=== PATIENT | female | born 1985 | race Caucasian/White ===

== ENCOUNTER 2019-10-14 11:36 | Outpatient (REF) | payer SELFPAY ==
[2019-10-14 12:52] LABS: Rubella IgG 42.6 IU/mL (0.0-9.0)
[2019-10-16 11:57] LABS: Quantiferon Mitogen 7.78 IU/mL; Quantiferon Nil 0.01 IU/mL; Quantiferon TB Gold NEGATIVE (NEGATIVE)
== END 2019-10-14 11:37 | disposition home or self-care (01) ==
LOC: LAB 11:36
DX: Z01.89 Encounter for other specified special examinations (principal)
CPT/HCPCS: 86480; 86706; 86735; 86762; 86765; 86787

== ENCOUNTER 2023-03-05 16:46 | Emergency (ER) | payer SELFPAY ==
[2023-03-05 16:48] VITALS: BP 127/81; PULSE 76; TEMP 36.9; O2SAT 100; BMI 22.8
[2023-03-05 17:01] VITALS: BP 127/81; PULSE 76; RESP 18; O2SAT 100
[2023-03-05 17:23] LABS: Basophils # 0.1 10^3/uL (0.0-0.1); Basophils % 0.8 %; Eosinophils # 0.1 10^3/uL (0.0-0.8); Eosinophils % 1.6 %; Hematocrit 40.8 % (37.0-47.0); Hemoglobin 12.9 g/dL (11.5-15.3); Lymphocytes # 2.7 10^3/uL (0.8-4.8); Lymphocytes % 41.1 %; Mean Corpuscular HGB Conc 31.6 g/dL (30.0-36.0); Mean Corpuscular Hemoglobin 29.7 pg (28.0-34.0); Mean Corpuscular Volume 93.8 fl (81-99); Mean Platelet Volume 9.7 fL (7.4-10.4); Monocytes # 0.4 10^3/uL (0.2-0.9); Monocytes % 5.7 %; Neutrophils # 3.27 10^3/uL (1.8-7.7); Neutrophils % 50.6 %; Nucleated Red Blood Cells % 0 %; Platelet Count 328 10^3/cmm (130-400); Red Blood Count 4.35 10^6/uL (4.1-5.3); Red Cell Distribution Width 11.9 % (12.1-15.1); White Blood Count 6.5 10^3/uL (4.0-10.0)
[2023-03-05 17:31] VITALS: RESP 18; O2SAT 100
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
[2023-03-05 17:40] LABS: HCG Qualitative Urine. Negative (Negative)
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
[2023-03-05 17:45] LABS: Alanine Aminotransferase 14 U/L (0-33); Albumin Level 4.1 g/dL (3.5-5.2); Alkaline Phosphatase 60 U/L (35-105); Anion Gap 10.7 (5-19); Aspartate Amino Transferase 20 U/L (0-32); Blood Urea Nitrogen 17 mg/dL (6-20); Calcium 8.4 mg/dL (8.5-10.5); Carbon Dioxide 27 mmol/L (22-29); Chloride 105 mmol/L (98-107); Globulin 2.7 g/dL (1.3-4.6); Glomerular Filtration Rate 111.3 mL/min (90-130); Glucose 50 mg/dL (65-115); Osmolality Calculated 287 mOsm/kg (285-295); Potassium 3.7 mmol/L (3.5-5.1); Sodium 139 mmol/L (136-145); Total Bilirubin 0.4 mg/dL (0.15-1.2); Total Protein 6.8 g/dL (6.6-8.7)
[2023-03-05 17:46] LABS: Acetaminophen < 5.0 ug/mL (10-30); Alcohol Level < 10 mg/dL (0-10); Salicylate < 0.3 mg/dL (3-10)
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
[2023-03-05 19:22] LABS: Amphetamines Screen Urine Positive (Negative); Barbiturates Screen Urine Negative (Negative); Benzodiazepines Screen Urine Negative (Negative); Cocaine Screen Urine Negative (Negative); Opiate Screen Urine Negative (Negative); PCP Screen Urine Negative (Negative); THC Screen Urine Positive (Negative)
[2023-03-05 19:29] LABS: Urine Color Red (Yellow)
[2023-03-05 19:30] LABS: Add Urine Microscopic? YES; Bilirubin Urine 1+ (Negative); Blood Urine 3+ (Negative); Glucose Urine UA Norm (Normal); Ketones Urine 1+ (Negative); Leukocyte Esterase Urine 1+ (Negative); Nitrate Urine Positive (Negative); Protein Urine 1+ (Negative); Specific Gravity, Urine 1.025 (1.005-1.030); Urine Appearance Cloudy (CLEAR); Urobilinogen Urine 1 mg/dL (Negative); pH Urine 5 (5-7)
[2023-03-05 19:31] LABS: Add Urine Culture? Yes; Bacteria Urine 3+ /hpf; RBC Urine >100 /hpf (0-2); Squamous Epithelial Cell Urine 0-4 /hpf (0-5)
[2023-03-05 20:32] VITALS: RESP 18; O2SAT 100
== END 2023-03-05 20:32 | disposition home or self-care (01) ==
PROVIDERS: Emergency Provider Emergency Medicine; PCP Family Medicine Adult Medicine
DX: F32.A Depression, unspecified (principal); F41.9 Anxiety disorder, unspecified; Z63.0 Problems in relationship with spouse or partner
CPT/HCPCS: 36415; 80053; 80306; 80307; 81001; 81025; 85025; 87077; 87086; 87186; 99283

== ENCOUNTER 2024-01-18 08:41 | Emergency (ER) | payer SELFPAY ==
[2024-01-18 08:46] VITALS: BP 160/83; PULSE 90; RESP 17; TEMP 36.5; O2SAT 98; BMI 22.4
[2024-01-18] MEDS: ondansetron 2 mg/ML SDV 2 mL 4 MG IVP (09:05)
[2024-01-18] MEDS: sodium chloride 0.9% 1,000 ML 999 ML IV (09:08)
[2024-01-18 09:09] VITALS: BP 137/87; PULSE 81; O2SAT 99
[2024-01-18 09:11] LABS: Basophils # 0.1 10^3/uL (0.0-0.1); Basophils % 0.8 %; Eosinophils % 0.1 %; Hematocrit 40.6 % (36-47); Lymphocytes # 1.6 10^3/uL (0.8-4.8); Lymphocytes % 19.8 %; Mean Corpuscular HGB Conc 35.2 g/dL (30-55); Mean Corpuscular Hemoglobin 31.2 pg (27-33); Mean Corpuscular Volume 88.5 fl (85-98); Mean Platelet Volume 9.5 fL (7.4-10.4); Monocytes # 0.6 10^3/uL (0.2-0.9); Monocytes % 7.3 %; Neutrophils # 5.62 10^3/uL (1.8-7.7); Neutrophils % 71.7 %; Nucleated Red Blood Cells % 0 %; Platelet Count 341 10^3/cmm (157-399); Red Blood Count 4.59 10^6/uL (3.85-5.65); Red Cell Distribution Width 12.1 % (12.1-15.1); White Blood Count 7.83 10^3/uL (3.29-11.43)
--- NOTE | 2024-01-18 09:27 | W.ED.NAVMDI ---
HPI - Nausea/Vomiting/Diarrhea General: Chief complaint: Nausea/Vomiting/Diarrhea Stated complaint: vomiting Time Seen by Provider: 01/18/24 08:49 Source: patient Mode of arrival: ambulatory History of Present Illness: 38-year-old female female who presents emergency room with persistent nausea vomiting. She is intermittently had this for the last couple weeks but has been increasing the last few days. She thinks her last period was sometime early in November giving her an roughly estimated estimated gestational age of 9 weeks. She has had some intermittent spotting is not currently having any vaginal bleeding now denies dysuria urgency or frequency. MD elicited complaint: nausea and vomiting Associated nausea: Yes Associated symtoms: Reports nausea; Denies altered mental status, anxiety, bloating, change in vision, chest pain, cough, diaphoresis, decreased urine output, dizziness, dysuria, epistaxis, fatigue, fecal incontinence, fevers/chills, headache(s), anorexia, malaise, myalgias, numbness, palpitations, rash, short of breath, syncope, tenesmus, tinnitus or weakness Review of Systems Const: Denies: fever(s), chills, fatigue, malaise or diaphoresis Eyes: Denies: change in vision ENMT: Denies: tinnitus or epistaxis Card: Denies: chest pain, palpitations or syncope Resp: Denies: dyspnea GI: Reports: nausea and vomiting; Denies: abdominal pain, bloating or fecal incontinence : Denies: dysuria, urinary frequency or urinary urgency Musc: Denies: neck pain or back pain Skin/Breast: Denies: rash Neuro: Denies: headache(s) or dizziness Psych: Denies: anxiety PFSH ED PFSH: Medical History Opioid abuse with other opioid-induced disorder Endometriosis Depression Anxiety Exposure to COVID-19 virus Social History Smoking and tobacco/nicotine status: current some day tobacco/nicotine user Alcohol intake: never Substance/Drug Use: former Marital status: Life Partner Number of children: 2 Number of grandchildren: 0 Current occupational status: employed Physical Exam Const: COMMON NORMALS: no acute distress EXAM LIMITATIONS: no altered mental status GENERAL APPEARANCE: cooperative and comfortable ORIENTATION/CONSCIOUSNESS: Yes awake, Yes oriented to person, Yes oriented to place and Yes oriented to time HENMT: COMMON NORMALS: normocephalic, atraumatic and hearing grossly normal bilaterally HEAD & SCALP: normocephalic and atraumatic Resp: COMMON NORMALS: normal respiratory effort, No retractions, No use of accessory muscles and clear to auscultation bilaterally AUSCULTATION: clear to auscultation bilaterally Cardio: COMMON NORMALS: regular rate, regular rhythm and No murmurs present (Cardio) RATE: regular rate RHYTHM: regular rhythm GI: COMMON NORMALS: Soft to palpation and No hepatosplenomegaly present AUSCULTATION: Yes normoactive bowel sounds PALPATION: Yes Soft to palpation, No Tenderness to palpation present (GI), No Guarding due to palpation present (GI) and Yes No hepatosplenomegaly present Extremity: COMMON NORMALS: normal to inspection, capillary refill normal, no clubbing, cyanosis or edema, no calf tenderness and no pedal edema Neuro: SENSORIUM/ORIENTATION: Yes oriented to person, Yes oriented to place and Yes oriented to time Skin: COMMON NORMALS: no rashes or lesions noted GENERAL SKIN EXAM: no rashes or lesions noted Course Vital Signs: Vital signs: Vital Signs Temperature 97.7 F 01/18/24 08:46 Pulse Rate 81 01/18/24 09:09 Respiratory Rate 17 01/18/24 08:46 Blood Pressure 137/87 01/18/24 09:09 Pulse Oximetry 99 01/18/24 09:09 Oxygen Delivery Me thod Room Air 01/18/24 09:09 MDM - Nausea/Vomiting/Diarrhea Medical Decision Making Patient feels much better after medications and IV fluids. Beta-hCG appropriate for gestational age ultrasound confirms IUP at 7 weeks 3 days. Will discharge patient home promethazine use. Clinical diet for 24 to 40 hours advance as tolerated follow-up with stapler coil unit as previously scheduled. Medical Records I reviewed the patient's medical records. Lab Data I reviewed the patient's lab results. 01/18/24 09:01 01/18/24 09:01 Laboratory Results WBC 7.83 10^3/uL (3.29-11.43) 01/18/24 09:01 RBC 4.59 10^6/uL (3.85-5.65) 01/18/24 09:01 Hgb 14.30 g/dL (11.27-16.99) 01/18/24 09:01 Hct 40.6 % (36-47) 01/18/24 09: MCV 88.5 fl (85-98) 01/18/24 09:01 MCH 31.2 pg (27-33) 01/18/24 09:01 MCHC 35.2 g/dL (30-55) 01/18/24 09:01 RDW 12.1 % (12.1-15.1) 01/18/24 09:01 Plt Count 341 10^3/cmm (157-399) 01/18/24 09:01 MPV 9.5 fL (7.4-10.4) 01/18/24 09:01 Neut % (Auto) 71.7 % 01/18/24 09: Lymph % (Auto) 19.8 % 01/18/24 09: [place] % (Auto) 7.3 % 01/18/24 09:01 Eos % (Auto) 0.1 % 01/18/24 09:01 Baso % (Auto) 0.8 % 01/18/24 09:01 Neut # (Auto) 5.62 10^3/uL (1.8-7.7) 01/18/24 09:01 Lymph # (Auto) 1.6 10^3/uL (0.8-4.8) 01/18/24 09:01 [place] # (Auto) 0.6 10^3/uL (0.2-0.9) 01/18/24 09:01 Eos # (Auto) 0.0 10^3/uL (0.0-0.8) 01/18/24 09:01 Baso # (Auto) 0.1 10^3/uL (0.0-0.1) 01/18/24 09:01 Nucleated RBC % (auto) 0 % 01/18/24 09: Nucleated RBCs # 0.0 /100WBC 01/18/24 09:01 Sodium 133 mmol/L (136-145) L 01/18/24 09:01 Potassium 3.5 mmol/L (3.5-5.1) 01/18/24 09:01 Chloride 97 mmol/L (98-107) L 01/18/24 09:01 Carbon Dioxide 20 mmol/L (22-29) L 01/18/24 09: Anion Gap 19.5 (5-19) H 01/18/24 09: BUN 15 mg/dL (6-20) 01/18/24 09: Creatinine 0.5 mg/dL (0.5-0.9) 01/18/24 09: GFR Calculation 136.6 mL/min (90-130) H 01/18/24 09: Glucose 99 mg/dL (65-115) 01/18/24 09: Calculated Osmolality 277 mOsm/kg (285-295) L 01/18/24 09: Calcium 9.2 mg/dL (8.5-10.5) 01/18/24 09: Total Bilirubin 0.6 mg/dL (0.15-1.2) 01/18/24 09: AST 17 U/L (0-32) 01/18/24 09: ALT 13 U/L (0-33) 01/18/24 09: Alkaline Phosphatase 54 U/L (35-105) 01/18/24 09: Total Protein 7.7 g/dL (6.6-8.7) 01/18/24 09: Albumin 4.5 g/dL (3.5-5.2) 01/18/24 09: Globulin 3.2 g/dL (1.3-4.6) 01/18/24 09: Lipase 17 U/L (13-60) 01/18/24 09: Ser , Semi-Qnt 87962.00 mIU/mL 01/18/24 09: Urine Color Yellow (Yellow) 01/18/24 09:39 Urine Appearance Clear (CLEAR) 01/18/24:39 Urine pH 5 (5-7) 01/18/24 09:39 Ur Specific [place] 1.025 (1.005-1.030) 01/18/24 09:39 Urine Protein Trace (Negative) 01/18/24 09:39 Urine Glucose (UA) Norm (Normal) 01/18/24 09:39 Urine Ketones 3+ (Negative) H 01/18/24 09:39 Urine Blood 2+ (Negative) H 01/18/24 09:39 Urine Nitrate Negative (Negative) 01/18/24 09:39 Urine Bilirubin 1+ (Negative) H 01/18/24 09:39 Urine Urobilinogen Norm mg/dL (Negative) 01/18/24 09:39 Ur Leukocyte Esterase Trace (Negative) H 01/18/24 09:39 Urine RBC 5-10 /hpf (0-2) H 01/18/24 09:39 Urine WBC 0-4 /hpf (0-5) H 01/18/24 09:39 Ur Squamous Epith Cells 5-10 /hpf (0-5) H 01/18/24 09:39 Amorphous Sediment Not Reportable 01/18/24 09:39 Urine Bacteria Trace /hpf (NONE) 01/18/24 09:39 Urine Mucus 2+ /hpf 01/18/24 09:39 All radiology interpretation(s) finalized by discharge Discharge Plan Discharge Patient Disposition: Home Clinical Impression: Hyperemesis gravidarum, First trimester Condition: Stable Prescriptions: New promethazine 25 mg tablet 25 mg PO Q6H PRN (Reason: nausea and vomiting) Qty: 20 0RF No Action methadone 160 mg wafer 95 mg PO DAILY omega-3 fatty acids [Fish Oil Concentrate] 1,000 mg capsule 1,000 mg PO DAILY garlic Tablet 300 mg PO DAILY multivitamin Tablet 1 tab PO DAILY escitalopram oxalate [Lexapro] 10 mg tablet 10 mg PO DAILY Qty: 30 0RF hydroxyzine HCl 25 mg tablet 25 mg PO Q6H PRN (Reason: anxiety/panic attacks) Qty: 30 0RF Discharge Orders: Discharge ED (Routine); Ordered 01/18/24 Ordered By: Trevor Mattson Referrals: Elly Vargas MD [Primary Care Provider] - Discharge Diet: Clear Liquid Discharge Activity: Increase activity as tolerated Patient Instructions: Hyperemesis Gravidarum (ED), Opioid Safety, Pain Management Activity Restrictions/Additional Instructions: Thank you for choosing [facility] for your healthcare needs today. Please realize this is an emergency room and that we are providing you with a medical screening exam and this may not be complete and all inclusive of all the testing and or work up that you may need to determine your ailment or severity of your illness. It is very important that you follow up as instructed or that you return to the Emergency Department should you have concerns or if your condition changes or worsens in any way. Follow-up with your stapler coil unit as scheduled. Ultrasound today showed a viable 7-week 3-day intrauterine. Coding Level of Care Code ED Carpet Cleaner for Heather Padgett
[2024-01-18 09:35] LABS: Alanine Aminotransferase 13 U/L (0-33); Albumin Level 4.5 g/dL (3.5-5.2); Alkaline Phosphatase 54 U/L (35-105); Anion Gap 19.5 (5-19); Aspartate Amino Transferase 17 U/L (0-32); Blood Urea Nitrogen 15 mg/dL (6-20); Calcium 9.2 mg/dL (8.5-10.5); Carbon Dioxide 20 mmol/L (22-29); Chloride 97 mmol/L (98-107); Creatinine Clr Calc Pharmacy 123.6674; Globulin 3.2 g/dL (1.3-4.6); Glomerular Filtration Rate 136.6 mL/min (90-130); Glucose 99 mg/dL (65-115); Lipase 17 U/L (13-60); Osmolality Calculated 277 mOsm/kg (285-295); Potassium 3.5 mmol/L (3.5-5.1); Sodium 133 mmol/L (136-145); Total Bilirubin 0.6 mg/dL (0.15-1.2); Total Protein 7.7 g/dL (6.6-8.7)
[2024-01-18 10:01] LABS: Add Urine Microscopic? YES; Bilirubin Urine 1+ (Negative); Blood Urine 2+ (Negative); Glucose Urine UA Norm (Normal); Ketones Urine 3+ (Negative); Leukocyte Esterase Urine Trace (Negative); Nitrate Urine Negative (Negative); Protein Urine Trace (Negative); Specific Gravity, Urine 1.025 (1.005-1.030); Urine Appearance Clear (CLEAR); Urine Color Yellow (Yellow); Urobilinogen Urine Norm (Negative); pH Urine 5 (5-7)
[2024-01-18 10:02] LABS: Add Urine Culture? No; Bacteria Urine TRACE /hpf; Mucus Urine 2+ /hpf; WBC Urine 0-4 /hpf (0-5)
[2024-01-18] MEDS: metoclopramide 5 mg/mL SDV 2 mL 10 MG IVP (10:06)
[2024-01-18] MEDS: diphenhydrAMINE 50 mg/mL SDV 1mL 25 MG IVP (10:08)
--- NOTE | 2024-01-18 10:55 | USR_ITS ---
PROCEDURE INFORMATION: Exam: US , Limited Exam date and time: 01/18/2024 11:19 AM Age: 38 years old Clinical indication: complicated by abdominal or pelvic pain; Lower; First trimester (<14 weeks 0 days); Gestational age or lmp: 7w 3d; ; Additional info: Confirm iup. Cramping LABS AND CLINICAL REPORTS: Last menstrual period start date: 11/28/2023 Gestational age (Established): 7 w 2 d Estimated due date (Established): 09/03/2024 TECHNIQUE: Imaging protocol: Real-time ultrasound of the maternal uterus with image documentation. Exam focused on the clinical indication. COMPARISON: No relevant prior studies available. FINDINGS: Gestation: There is a intrauterine gestational sac, yolk sac and pole identified. The crown-rump length of the fetus measures 7 weeks and 3 days. No evidence of a subchorionic hemorrhage heart rate: Normal cardiac activity measuring 163 bpm MATERNAL: Cervix: Cervical length measures 3.4 cm. US/US OB limited [id number] IMPRESSION: Normal-appearing single live intrauterine measuring 7 weeks and 3 days with normal cardiac activity
[2024-01-18 12:19] VITALS: BP 137/87; PULSE 81; RESP 17; TEMP 36.5; O2SAT 99
== END 2024-01-18 12:20 | disposition home or self-care (01) ==
PROVIDERS: Emergency Provider Family Medicine; PCP Family Medicine
DX: O21.0 Mild hyperemesis gravidarum (principal); Z3A.01 Less than 8 weeks gestation of pregnancy; Z79.891 Long term (current) use of opiate analgesic; O99.331 Smoking (tobacco) complicating pregnancy, first trimester
CPT/HCPCS: 76815; 80053; 81001; 83690; 84702; 85025; 96361; 96374; 96375; 99285; J1200; J2405; J2765; J7030

== ENCOUNTER → 2024-01-29 07:27 | Outpatient (BNVA) | payer SELFPAY | PROVIDERS: PCP Family Medicine; Visit Provider Nurse Practitioner Women's Health | DX: N92.6 Irregular menstruation, unspecified (principal); Z34.90 Encounter for supervision of normal pregnancy, unspecified, unspecified trimester; Z32.01 Encounter for pregnancy test, result positive | CPT/HCPCS: 81025; 84702; 86850; 86900 ==

== ENCOUNTER → 2024-02-16 07:51 | Outpatient (BNVA) | payer OTHER, SELFPAY | PROVIDERS: PCP Family Medicine; Visit Provider Obstetrics & Gynecology | DX: Z34.90 Encounter for supervision of normal pregnancy, unspecified, unspecified trimester (principal) | CPT/HCPCS: 81000; 87491; 87591; 87624 ==

== ENCOUNTER → 2024-03-10 13:19 | Outpatient (BNVA) | payer MEDICAID, SELFPAY | PROVIDERS: PCP Family Medicine; Visit Provider Obstetrics & Gynecology | DX: Z34.90 Encounter for supervision of normal pregnancy, unspecified, unspecified trimester (principal) | CPT/HCPCS: 76815 ==

== ENCOUNTER → 2024-03-25 08:09 | Outpatient (BNVA) | payer MEDICAID, SELFPAY | PROVIDERS: PCP Family Medicine; Visit Provider Nurse Practitioner Women's Health | DX: Z34.90 Encounter for supervision of normal pregnancy, unspecified, unspecified trimester (principal) | CPT/HCPCS: 80307; 82105; 84315; 85025; 86592; 86762; 86803; 86850; 86900; 87086; 87340; 87806 ==

== ENCOUNTER → 2024-04-21 14:04 | Outpatient (BNVA) | payer MEDICAID, SELFPAY | PROVIDERS: PCP Family Medicine; Visit Provider Obstetrics & Gynecology | DX: Z36.2 Encounter for other antenatal screening follow-up (principal); Z3A.20 20 weeks gestation of pregnancy | CPT/HCPCS: 76805 ==

== ENCOUNTER → 2024-04-30 14:32 | Outpatient (BNVA) | payer MEDICAID, SELFPAY | PROVIDERS: PCP Family Medicine; Visit Provider Obstetrics & Gynecology | DX: O09.92 Supervision of high risk pregnancy, unspecified, second trimester (principal) | CPT/HCPCS: 84315 ==

== ENCOUNTER → 2024-06-02 08:11 | Outpatient (BNVA) | payer MEDICAID, SELFPAY | PROVIDERS: PCP Family Medicine; Visit Provider Nurse Practitioner Women's Health | DX: O09.92 Supervision of high risk pregnancy, unspecified, second trimester (principal) | CPT/HCPCS: 80307; 82950; 84315; 85025 ==

== ENCOUNTER 2024-06-09 09:10 | Outpatient (CLI) | payer MEDICAID, SELFPAY ==
[2024-06-09] VITALS (10 sets, daily range): BP systolic 95–112; BP diastolic 49–64; PULSE 54–76; BMI 25.6
[2024-06-09 09:42] LABS: Bacteria Urine 1+ /hpf; Hyaline Casts Urine 0.81 /lpf; RBC Urine 0-2 /hpf (0-2); Squamous Epithelial Cell Urine 0-5 /hpf (0-5); WBC Urine 0-5 /hpf (0-5)
[2024-06-09 10:05] LABS: Bilirubin Urine Negative (Negative); Blood Urine Negative (Negative); Glucose Urine UA Negative (Normal); Ketones Urine 2+ (Negative); Leukocyte Esterase Urine Negative (Negative); Nitrate Urine Negative (Negative); Protein Urine Negative (Negative); Specific Gravity, Urine 1.016 (1.005-1.030); Urine Appearance Clear (CLEAR); Urine Color Yellow (Yellow)
[2024-06-09 10:17] LABS: Add Urine Culture? No
== END 2024-06-09 11:48 | disposition home or self-care (01) ==
LOC: OPOB 09:13 → OBGYN 09:14
PROVIDERS: PCP Family Medicine; Visit Provider Obstetrics & Gynecology
DX: O26.899 Other specified pregnancy related conditions, unspecified trimester (principal); Z3A.00 Weeks of gestation of pregnancy not specified; R10.9 Unspecified abdominal pain
CPT/HCPCS: 59025; 81001; 99211

== ENCOUNTER → 2024-06-16 15:47 | Outpatient (BNVA) | payer MEDICAID, SELFPAY | PROVIDERS: PCP Family Medicine; Visit Provider Nurse Practitioner Women's Health | DX: O09.92 Supervision of high risk pregnancy, unspecified, second trimester (principal) | CPT/HCPCS: 80307; 84315; 85025; 86850 ==

== ENCOUNTER → 2024-06-25 15:10 | Outpatient (BNVA) | payer MEDICAID, SELFPAY | PROVIDERS: PCP Family Medicine; Visit Provider Obstetrics & Gynecology | DX: O09.92 Supervision of high risk pregnancy, unspecified, second trimester (principal); F11.188 Opioid abuse with other opioid-induced disorder | CPT/HCPCS: 80307; 84315 ==

== ENCOUNTER → 2024-07-13 10:09 | Outpatient (BNVA) | payer MEDICAID, SELFPAY | PROVIDERS: PCP Family Medicine; Visit Provider Obstetrics & Gynecology | DX: O36.5930 Maternal care for other known or suspected poor fetal growth, third trimester, not applicable or unspecified (principal); Z3A.29 29 weeks gestation of pregnancy | CPT/HCPCS: 76816; 76820 ==

== ENCOUNTER 2024-08-12 13:05 | Inpatient (IN) | payer MEDICAID, SELFPAY ==
[2024-08-12] VITALS (19 sets, daily range): BP systolic 99–142; BP diastolic 55–83; PULSE 69–106; RESP 16–18; TEMP 36.3–36.8; BMI 23.8
[2024-08-12 14:08] LABS: Amphetamines Screen Urine Negative (Negative); Barbiturates Screen Urine Negative (Negative); Benzodiazepines Screen Urine Positive (Negative); Cocaine Screen Urine Negative (Negative); Opiate Screen Urine Negative (Negative); PCP Screen Urine Negative (Negative); THC Screen Urine Positive (Negative)
[2024-08-12 14:35] LABS: Basophils % 0.3 %; Hematocrit 37.1 % (36-47); Lymphocytes # 1.6 10^3/uL (0.8-4.8); Mean Corpuscular Hemoglobin 30.2 pg (27-33); Mean Platelet Volume 11.9 fL (7.4-10.4); Monocytes # 0.5 10^3/uL (0.2-0.9); Monocytes % 6.4 %; Neutrophils # 5.41 10^3/uL (1.8-7.7); Nucleated Red Blood Cells % 0 %; Platelet Count 267 10^3/cmm (157-399); Red Blood Count 4.17 10^6/uL (3.85-5.65); White Blood Count 7.51 10^3/uL (3.29-11.43)
[2024-08-12] MEDS: fentaNYL 50 mcg/mL INJ 2mL IVP ×2 (15:20→17:45)
[2024-08-12] MEDS: dextrose 5%-lactated ringers 1,000 ML 125 ML IV (15:21)
[2024-08-12] MEDS: ampicillin 2,000 MG in sodium chloride 0.9% (plus) 50 ML 100 MG IV (15:21)
[2024-08-12] MEDS: alum-mag-hydroxide-sime 30 mL UDC PO ×2 (15:21→19:39)
[2024-08-12] MEDS: ondansetron 2 mg/ML SDV 2 mL 4 MG IVP ×2 (16:20→21:01)
--- NOTE | 2024-08-12 17:10 | P.HP_ITS ---
Providers/Chief Complaint 2 Admitting Physician: Dawit Moss MD Primary RUBBER GOODS REPAIRER: Jose Brown MD Primary Care Provider: Elly Vargas MD Chief Complaint: ctx,vomiting HPI RUBBER GOODS REPAIRER History of Present Illness Kandy Thomas is a 39 year old female EDC August 31, 2024 At 37 w 2 d No complications Presents to L&D c/o painful uterine contractions and fluid leakage No bleeding + active movements h/o x two inconsistent visits last visit was at 33 weeks PMHx: h/o opioid abuse Meds: methadone Sertraline Present Details : 3 Para: 2 Labs Rubella: Immune RPR: Negative GBS: Unknown Medications/Allergies Home Medications Medication Instructions Recorded Confirmed Last Taken Type methadone 120 mg PO DAILY 04/15/23 08/12/24 08/12/24 History sertraline 25 mg tablet (Zoloft) 25 mg PO DAILY #30 tabs 06/16/24 07/12/24 Unknown Rx benzonatate 100 mg capsule 100 mg PO BID PRN cough #7 caps 06/17/24 07/12/24 Unknown Rx ondansetron 4 mg disintegrating See Rx Instructions .Route 07/19/24 08/12/24 1 Week Ago Rx tablet .COMPLEX #20 tabs ~08/05/24 PNV 153-FA 400 mcg-om3 35 mg-dha tab PO 08/12/24 08/12/24 History 25 mg-epa 5 mg-fish oil chew tablet ( Gummies) sertraline 20 mg/mL oral 20 mg PO DAILY 08/12/24 08/12/24 08/12/24 History concentrate (Zoloft) Allergies Allergy/AdvReac Type Severity Reaction Status Date / Time No Known Allergies Allergy Verified 08/12/24 16:42 PFSH RUBBER GOODS REPAIRER 2 PFSH: Medical History No pertinent past medical history neghx: htn,dm,thyroid,dvt/pe PCP: None Opioid abuse with other opioid-induced disorder Endometriosis Depression Anxiety Exposure to COVID-19 virus Surgical History No pertinent past surgical history Family History Father Colon cancer Hypertension Hyperlipidemia Denies family history of Ovarian cancer Prostate cancer Diabetes Heart disease Breast cancer Uterine cancer Thyroid disease Stroke Social History (Updated 08/12/24 @ 16:42 by Jessica Chung, SHERYL) Smoking and tobacco/nicotine status: current every day tobacco/nicotine user History History History 2 3 Term 2 0 Miscarriages/Ectopic 0 Living Children 2 Care JOSH Calculator 2 Estimated Delivery Date Method Current WG Current Estimate 08/31/24 LMP (Certain) 37w 3d Specific Issues/Plans 06/02/2024-Desires sterilization after her delivery--- needs counseling and SANJU papers signed -opioid use -Current Marijuana use -benzo use/abuse -AMA -tobacco use -rh negative --- rhogam given 06/16/2024 JR Vitals/I&O/Wt Last Vital Signs Temp 97.9 F 08/13/24 03:38 Pulse 83 08/13/24 06:38 Resp 18 08/13/24 04:18 BP 138/96 08/13/24 06:38 O2 Del Method Room Air 08/13/24 04:31 08/12/24 08/12/24 08/13/24 14:59 22:59 06:59 Intake Total 627.083 / 627.083 53.50 / 680.583 Balance 627.083 / 627.083 53.50 / 680.583 Weight last 48 hrs Weight 130 lb 8 oz Physical Exam 2 Narrative: Weight 130 lbs; 5?2? VS normal General awake, alert Lungs: clear Cor: RRR FH 36 cm, cephalic Cervix: + gross clear amniotic fluid 2 cm / -2 / posterior Ext: no edema External monitor: + regular UCs heart tracing good variability, + accelerations Data 08/12/24 13:40 Results Labs OB ([facility]): 2 Obstetrics US 07/13/24 Blood Type O Negative 08/12/24 Antibody Screen Positive 08/12/24 Hct 37.1 % (36-47) 08/12/24 Hgb 12.60 g/dL (11.27-16.99) 08/12/24 Rho(D) Type Rh negative 08/12/24 Plt Count 267 10^3/cmm (157-399) 08/12/24 Hep Bs Antigen Non-reactive (Nonreactive) 03/25/24 Hepatitis C Antibody Non-reactive (Nonreactive) 03/25/24 Rubella IgG Antibody 37.2 IU/mL (0.0-10.0) H 03/25/24 RPR Nonreactive (Nonreactive) 03/25/24 HIV 1&2 Ab & HIV 1 Ag Non-reactive (Non-Reactiv) 03/25/24 C.trachomatis RNA (TMA) Not detected 02/16/24 N.gonorrhoeae RNA (TMA) Not detected 02/16/24 T. vaginalis Amp RNA Not detected 02/16/24 Chlamydia/GC Comment See comment 02/16/24 Cystic Fibrosis Screen Negative 03/25/24 Glucose 1 Hr 50 gm 67 mg/dL (85-140) L 06/02/24 Ser , Semi-Qnt 669120.00 mIU/mL 01/29/24 HCG, Qual Positive (Negative) H 01/29/24 Urine Opiates Screen Negative ng/mL (Negative) 08/12/24 Ur Barbiturates Screen Negative ng/mL (Negative) 08/12/24 Ur Phencyclidine Scrn Negative ng/mL (Negative) 08/12/24 Ur Amphetamines Screen Negative ng/mL (Negative) 08/12/24 U Benzodiazepines Scrn Positive ng/mL (Negative) H 08/12/24 Urine Cocaine Screen Negative ng/mL (Negative) 08/12/24 U Marijuana (THC) Screen Positive ng/mL (Negative) H Micro Urine Specimen 03/25/24 Pap Smear Interpret See comment 02/16/24 A&P Assessment and plan (1) Supervision of high-risk : 37 w 2 d Spontaneous rupture of membranes Uterine contractions Admit Expectant management Qualifiers: Trimester: second trimester Qualified Code(s): O09.92 - Supervision of high risk , unspecified, second trimester (2) GBS screening not performed: inconsistent visits unknown GBS plan start Abx (3) Opioid abuse with other opioid-induced disorder: (4) Marijuana use during : Attestations 2 Medical Necessity Statement*: patient at 37 w 2 d, presented with painful contractions and spontaneous rupture of membranes Coding Level of Care Code Acute Code for Chg Fwd Diagnoses Supervision of high risk in second trimester O09.92 Trimester: second trimester GBS screening not performed Opioid abuse with other opioid-induced disorder F11.188 Marijuana use during O99.320; F12.90 Time Spent (min) 60
[2024-08-12] MEDS: ampicillin 1,000 MG in sodium chloride 0.9% (plus) 50 ML 100 MG IV ×2 (19:28→23:28)
[2024-08-12] MEDS: hyDROXYzine 25 mg Capsule 50 MG PO (21:01)
[2024-08-12] MEDS: acetaminophen 325 mg Tablet 650 MG PO (22:10)
[2024-08-13] VITALS (25 sets, daily range): BP systolic 109–154; BP diastolic 60–96; PULSE 65–105; RESP 16–18; TEMP 36.4–37
--- NOTE | 2024-08-13 00:35 | PM.OBGYPN ---
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: Interval history: Fetus reassuring Not having strong UCs Having clear fluid leakage Plan start Pitocin augmentation Labor: Station: +1 Amniotic Membrane Status: Ruptured Monitor Mode: Palpation Contraction Pattern: Regular Vitals/I&O/Wt Last Vital Signs Temp 97.9 F 08/13/24 03:38 Pulse 83 08/13/24 06:57 Resp 18 08/13/24 04:18 BP 138/78 08/13/24 06:57 O2 Del Method Room Air 08/13/24 04:31 08/12/24 08/13/24 08/13/24 22:59 06:59 14:59 Intake Total 627.083 / 627.083 53.50 / 680.583 Balance 627.083 / 627.083 53.50 / 680.583 Weight last 48 hrs Weight 130 lb 8 oz Data 08/12/24 13:40 A&P Assessment and plan (1) Supervision of high-risk : Qualifiers: Trimester: second trimester Qualified Code(s): O09.92 - Supervision of high risk , unspecified, second trimester Attestations Medical Necessity Statement*: patient at 37 w 3 d, with spontaneous rupture of membranes Coding Level of Care Code Acute Code for Chg Fwd Diagnoses Supervision of high risk in second trimester O09.92 Trimester: second trimester Time Spent (min) 20
[2024-08-13] MEDS: oxytocin 30 UNIT/500 ML BAG IV (01:30)
[2024-08-13] MEDS: calcium carbonate 500 mg Chew Tablet 1000 MG PO (01:53)
[2024-08-13] MEDS: fentaNYL 50 mcg/mL INJ 2mL IVP ×2 (02:23→04:18)
[2024-08-13] MEDS: alum-mag-hydroxide-sime 30 mL UDC PO (03:38)
[2024-08-13] MEDS: ampicillin 1,000 MG in sodium chloride 0.9% (plus) 50 ML 100 MG IV (03:38)
--- NOTE | 2024-08-13 06:10 | P.PN_ITS ---
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 Subjective: Interval history: , vigorous infant Normal placenta and cord Cord blood obtained No episiotomy / lacerations EBL: 300 cc No complications Labor: Station: +1 Amniotic Membrane Status: Ruptured Monitor Mode: Palpation Contraction Pattern: Regular Vitals/I&O/Wt Last Vital Signs Temp 97.9 F 08/13/24 03:38 Pulse 83 08/13/24 06:57 Resp 18 08/13/24 04:18 BP 138/78 08/13/24 06:57 O2 Del Method Room Air 08/13/24 04:31 08/12/24 08/13/24 08/13/24 22:59 06:59 14:59 Intake Total 627.083 / 627.083 53.50 / 680.583 Balance 627.083 / 627.083 53.50 / 680.583 Weight last 48 hrs Weight 130 lb 8 oz Data 08/12/24 13:40 A&P Assessment and plan (1) Vaginal delivery: Attestations 2 Medical Necessity Statement*: patient s/p vaginal delivery Coding Level of Care Code Acute Code for Chg Fwd Diagnoses Vaginal delivery O80 Time Spent (min) 60
--- NOTE | 2024-08-13 06:15 | PM.DELIVERY ---
Delivery Note: Date of delivery: August 13, 2024 Pre-delivery diagnoses: 37 w 2 d spontaneous rupture of membranes painful uterine contractions inconsistent visits unknown GBS h/o opioid abuse h/o marijuana use h/o x two Rh negative Post-delivery diagnoses: 37 w 2 d spontaneous rupture of membranes painful uterine contractions pitocin augmentation vaginal delivery inconsistent visits unknown GBS h/o opioid abuse h/o marijuana use h/o x two Rh negative Procedure: pitocin augmentation vaginal delivery Delivering Physician: Dawit Moss MD Estimated blood loss (mL): 300 Findings: , vigorous Normal placenta and cord Cord blood obtained No episiotomy / lacerations EBL: 300 cc No complications Pre-Delivery Course: normal labor course Delivery: vaginal Post-Delivery Status: good History History History 3 Term 2 0 Miscarriages/Ectopic 0 Living Children 2 A&P Assessment and plan (1) Vaginal delivery: Coding Level of Care Code Acute Code for Chg Fwd Diagnoses Vaginal delivery O80 Time Spent (min) 60
[2024-08-13] MEDS: PRENATAL VIT NO.130/IRON/FOLIC 1 EACH TABLET PO (08:50)
[2024-08-13] MEDS: ibuprofen 800 mg tablet PO ×3 (08:50→22:26)
[2024-08-13] MEDS: docusate sodium 100 mg Capsule PO ×2 (08:50→18:43)
[2024-08-13 19:17] LABS: Hematocrit 35.8 % (36-47); Mean Corpuscular HGB Conc 33.8 g/dL (30-55); Mean Corpuscular Hemoglobin 30.2 pg (27-33); Mean Corpuscular Volume 89.3 fl (85-98); Mean Platelet Volume 11.5 fL (7.4-10.4); Platelet Count 255 10^3/cmm (157-399); Red Blood Count 4.01 10^6/uL (3.85-5.65); White Blood Count 11.93 10^3/uL (3.29-11.43)
[2024-08-14 04:00] VITALS: BP 130/85; PULSE 85; RESP 15; TEMP 36.9
[2024-08-14] MEDS: docusate sodium 100 mg Capsule PO (09:21)
[2024-08-14] MEDS: PRENATAL VIT NO.130/IRON/FOLIC 1 EACH TABLET PO (09:21)
[2024-08-14] MEDS: ibuprofen 800 mg tablet PO (09:21)
[2024-08-14] MEDS: flu vacc pf 24-25 (6 mos+) SYRINGE 45 MCG IM (10:31)
[2024-08-14 10:34] VITALS: BP 115/78; PULSE 73; RESP 16; TEMP 36.7
[2024-08-14 11:03] VITALS: BP 115/78; PULSE 78; TEMP 36.7
[2024-08-14 11:30] VITALS: BP 117/81; PULSE 80; TEMP 36.7; O2SAT 98
--- NOTE | 2024-08-14 12:55 | PM.OBGYDC ---
Discharge Providers DYE BOARDING MACHINE OPERATOR Date of Admission: 08/12/24 13:05 Date of Discharge: 08/14/24 Attending Provider at Admission: Dawit Moss MD Attending Provider at Discharge: Dawit Moss MD Consults: none Primary DYE BOARDING MACHINE OPERATOR: Jose Brown MD Primary Care Provider: Elly Vargas MD Diagnoses at Discharge Discharge Diagnosis (1) Vaginal delivery: Details from hospital stay: 39 y.o. at 37 w 2 d presents c/o painful uterine contractions and fluid leakage h/o x two patient had gross rupture of membranes at admission with cervix at 2 cm She required pitocin augmentation of labor patient progressed to complete dilatation fetus was reassuring throughout had vaginal delivery without episiotomy or lacerations patient did well and was discharged to home on the first day Status: Inactive Reason for Visit Reason for Visit: ctx,vomiting Brief History: 39 y.o. at 37 w 2 d presents c/o painful uterine contractions and fluid leakage h/o x two patient had gross rupture of membranes at admission with cervix at 2 cm Hospital Course Hospital Course 39 y.o. at 37 w 2 d presents c/o painful uterine contractions and fluid leakage h/o x two patient had gross rupture of membranes at admission with cervix at 2 cm She required pitocin augmentation of labor patient progressed to complete dilatation fetus was reassuring throughout had vaginal delivery without episiotomy or lacerations patient did well and was discharged to home on the first day Information Peripartum Data: Delivery Method: Vaginal Laceration description: None Episiotomy description: None complications: none Physical Exam Narrative: afebrile, VS normal comfortable, awake, alert Abd: soft, nontender. fundus firm Ext: no edema; nontender History History History 3 Term 2 0 Miscarriages/Ectopic 0 Living Children 2 Discharge Data Studies Completed and Pending Laboratory Results WBC 11.93 10^3/uL (3.29-11.43) H 08/13/24 18:45 RBC 4.01 10^6/uL (3.85-5.65) 08/13/24 18:45 Hgb 12.10 g/dL (11.27-16.99) 08/13/24 18:45 Hct 35.8 % (36-47) L 08/13/24 18:45 MCV 89.3 fl (85-98) 08/13/24 18:45 MCH 30.2 pg (27-33) 08/13/24 18:45 MCHC 33.8 g/dL (30-55) 08/13/24 18:45 RDW 13.0 % (12.1-15.1) 08/13/24 18:45 Plt Count 255 10^3/cmm (157-399) 08/13/24 18:45 MPV 11.5 fL (7.4-10.4) H 08/13/24 18:45 Neut % (Auto) 72.0 % 08/12/24 13:40 Lymph % (Auto) 21.0 % 08/12/24 13:40 [place] % (Auto) 6.4 % 08/12/24 13:40 Eos % (Auto) 0.0 % 08/12/24 13:40 Baso % (Auto) 0.3 % 08/12/24 13:40 Neut # (Auto) 5.41 10^3/uL (1.8-7.7) 08/12/24 13:40 Lymph # (Auto) 1.6 10^3/uL (0.8-4.8) 08/12/24 13:40 [place] # (Auto) 0.5 10^3/uL (0.2-0.9) 08/12/24 13:40 Eos # (Auto) 0.0 10^3/uL (0.0-0.8) 08/12/24 13:40 Baso # (Auto) 0.0 10^3/uL (0.0-0.1) 08/12/24 13:40 Nucleated RBC % (auto) 0 % 08/12/24 13:40 Nucleated RBCs # 0.0 /100WBC 08/12/24 13:40 Urine Opiates Screen Negative ng/mL (Negative) 08/12/24 13:40 Ur Barbiturates Screen Negative ng/mL (Negative) 08/12/24 13:40 Ur Phencyclidine Scrn Negative ng/mL (Negative) 08/12/24 13:40 Ur Amphetamines Screen Negative ng/mL (Negative) 08/12/24 13:40 U Benzodiazepines Scrn Positive ng/mL (Negative) H 08/12/24 13:40 Urine Cocaine Screen Negative ng/mL (Negative) 08/12/24 13:40 U Marijuana (THC) Screen Positive ng/mL (Negative) H 08/12/24 13:40 Blood Type O Negative 08/12/24 13:40 Rho(D) Type Rh negative 08/12/24 13:40 Antibody Screen Positive 08/12/24 13:40 Antibody Identification Anti-D 08/12/24 13:40 Screen Negative (Negative) 08/13/24 18:45 Procedures Performed pitocin augmentation of labor vaginal delivery Vitals Last Vital Signs Temp 98.0 F 08/14/24 11:30 Pulse 80 08/14/24 11:30 Resp 16 08/14/24 10:34 BP 117/81 08/14/24 11:30 Pulse Ox 98 08/14/24 11:30 O2 Del Method Room Air 08/14/24 11:03 Results Labs OB ([facility]): Obstetrics US 07/13/24 Blood Type O Negative 08/12/24 Antibody Screen Positive 08/12/24 Hct 35.8 % (36-47) L 08/13/24 Hgb 12.10 g/dL (11.27-16.99) 08/13/24 Rho(D) Type Rh negative 08/12/24 Plt Count 255 10^3/cmm (157-399) 08/13/24 Hep Bs Antigen Non-reactive (Nonreactive) 03/25/24 Hepatitis C Antibody Non-reactive (Nonreactive) 03/25/24 Rubella IgG Antibody 37.2 IU/mL (0.0-10.0) H 03/25/24 RPR Nonreactive (Nonreactive) 03/25/24 HIV 1&2 Ab & HIV 1 Ag Non-reactive (Non-Reactiv) 03/25/24 C.trachomatis RNA (TMA) Not detected 02/16/24 N.gonorrhoeae RNA (TMA) Not detected 02/16/24 T. vaginalis Amp RNA Not detected 02/16/24 Chlamydia/GC Comment See comment 02/16/24 Cystic Fibrosis Screen Negative 03/25/24 Glucose 1 Hr 50 gm 67 mg/dL (85-140) L 06/02/24 Ser , Semi-Qnt 951725.00 mIU/mL 01/29/24 HCG, Qual Positive (Negative) H 01/29/24 Urine Opiates Screen Negative ng/mL (Negative) 08/12/24 Ur Barbiturates Screen Negative ng/mL (Negative) 08/12/24 Ur Phencyclidine Scrn Negative ng/mL (Negative) 08/12/24 Ur Amphetamines Screen Negative ng/mL (Negative) 08/12/24 U Benzodiazepines Scrn Positive ng/mL (Negative) H 08/12/24 Urine Cocaine Screen Negative ng/mL (Negative) 08/12/24 U Marijuana (THC) Screen Positive ng/mL (Negative) H 08/12/24 Micro Urine Specimen 03/25/24 Pap Smear Interpret See comment 02/16/24 Discharge Plan Discharge Patient Disposition: Home Condition: Stable Prescriptions: Continued methadone 160 UNITS wafer 120 mg PO DAILY sertraline [Zoloft] 25 mg tablet 25 mg PO DAILY Qty: 30 6RF benzonatate 100 mg capsule 100 mg PO BID PRN (Reason: cough) Qty: 7 0RF ondansetron 4 mg tablet,disintegrating See Rx Instructions .ROUTE .COMPLEX Qty: 20 0RF Dose Instruction: DISSOLVE 1 TABLET IN MOUTH ONCE DAILY Rx Instructions: DISSOLVE 1 TABLET IN MOUTH ONCE DAILY sertraline [Zoloft] 20 mg/mL Concentrate 20 mg PO DAILY Gummies 400 mcg-35 mg- 25 mg-5 mg Tablet,Chewable PO Discharge Orders: Discharge Order (Routine); Ordered 08/14/24 Ordered By: Dawit Moss Referrals: Dawit Moss MD [Physician] - 6 Weeks (Call [facility] Friday to make a appointment with Dr. Moss. ) Discharge Diet: Usual diet Discharge Activity: Increase activity as tolerated Patient Instructions: Depression (DC), Opioid Safety (DC), Preeclampsia and Eclampsia After Delivery (GEN), Hemorrhage (DC), OB Discharge Report, OB Food/Drug Interaction Guide, Opioid Safety, OB Home Care, OB Vaginal Deliveries - [facility], Abnormal Bleeding Discharge Attestations DYE BOARDING MACHINE OPERATOR Time Spent in Discharge Care*: less than 30 min Coding Level of Care Code Acute Code for Chg Fwd Diagnoses Vaginal delivery O80 Time Spent (min) 20
== END 2024-08-14 11:15 | disposition home or self-care (01) | DRG 807 ==
LOC: OPOB 13:05 → OBGYN 13:05
PROVIDERS: Admitting Provider Obstetrics & Gynecology; PCP Family Medicine; Visit Provider Obstetrics & Gynecology
DX: O80 Encounter for full-term uncomplicated delivery (principal); Z37.0 Single live birth; Z3A.37 37 weeks gestation of pregnancy
CPT/HCPCS: 36415; 36430; 59025; 59409; 80306; 80503; 83986; 85025; 85027; 85460; 86850; 86870; 86900; 90384; 90471; 90686; 96374; 96376; 98960; 99211; J0290; J2405; J2590; J3010; J7121